=== PATIENT | female | born 1975 | race Asian ===

== ENCOUNTER 2022-11-05 08:33 | Day surgery (SDC) | payer OTHER ==
[~2022-11-05] VITALS: Ht 165.1 cm; Wt 57.6 kg
[2022-11-05] MEDS ORDERED: fentaNYL citrate 0.05 MG/ML VIAL ONE (09:09)
[2022-11-05] MEDS ORDERED: diphenhydrAMINE 50 MG/ML VIAL ONE (09:09)
[2022-11-05] MEDS ORDERED: MIDAZOLAM 5 MG/5 ML VIAL ONE (09:09)
[2022-11-05] MEDS ORDERED: LIDOCAINE 2% 100 MG/5 ML UJET TP ONE (09:09)
[2022-11-05] MEDS ORDERED: MIDAZOLAM 2 MG/2 ML VIAL IVP ONE (13:30)
[2022-11-05] MEDS ORDERED: fentaNYL citrate 0.05 MG/ML VIAL IVP ONE (13:30)
== END 2022-11-05 11:47 | disposition home or self-care (01) ==
LOC: MDS 08:33 → MMU 08:34 → MDS 11:47
PROVIDERS: ATTEND Internal Medicine Gastroenterology
DX: Z12.11 Encounter for screening for malignant neoplasm of colon (principal); K63.5 Polyp of colon; G43.909 Migraine, unspecified, not intractable, without status migrainosus; Z20.822 Contact with and (suspected) exposure to COVID-19
CPT/HCPCS: 45385; 87426; 88305; J2250; J3010; J1200